=== PATIENT | female | born 1940 | race Caucasian/White ===

== ENCOUNTER 2022-01-01 14:05 | Emergency (ER) | payer MEDICARE, BC ==
[~2022-01-01] VITALS: Ht 154.9 cm; Wt 51.7 kg
--- NOTE | 2022-01-01 14:06 | NUR ---
MD at bedside, medical screening exam in progress.
[2022-01-01] MEDS ORDERED: AMOX-430 PO (14:27)
[2022-01-01] MEDS ORDERED: TDAP DIPH,PERTUSS,TET VAC/PF 0.5 ML DISP.SYRIN IM ONE ×2 (14:30→14:33)
--- NOTE | 2022-01-01 14:35 | NUR ---
Right dorsal hand, forearm, left mid finger irrigated with NS, pat with sterile gauze, applied steri strips strips as ordered.
[2022-01-01 14:44] VITALS: BP 116/75
--- NOTE | 2022-01-01 14:44 | NUR ---
Patient discharged to home in stable condition. Written and verbal after care instructions given. Patient verbalizes understanding of instructions. Stressed follow up or return to ER for worsening s/s.
== END 2022-01-01 14:44 | disposition home or self-care (01) ==
LOC: ER 14:08 → EDBD 14:08 → ER 14:44
DX: S61.431A Puncture wound without foreign body of right hand, initial encounter (principal); S61.233A Puncture wound without foreign body of left middle finger without damage to nail, initial encounter; S60.511A Abrasion of right hand, initial encounter; W54.0XXA Bitten by dog, initial encounter; Y92.89 Other specified places as the place of occurrence of the external cause
CPT/HCPCS: 90715; A4663